=== PATIENT | female | born 1930 | race Caucasian/White ===

== ENCOUNTER → 2020-05-30 | Outpatient (CLI) | payer MEDICARE, OTHER ==
[~2020-05-30] MED LIST: APRESOLINE 25MG25 MG PO; APRESOLINE50 MG PO; ASPIRIN E.C. 8181 MG PO; B-12 SHOT; BETAPACE 80MG80 MG PO; BYSTOLIC5 MG PO; CALTRATE 600 +1 TAB PO; CATAPRES 0.1MG0.1 MG PO; CEPHALEXIN500 M1 PO; CLARITIN 1010 MG/TAB PO; COSOPT 2%-0.5%10 ML OS; COZAAR 50MG50 MG/TAB PO; ELIQUIS 2.5 PO; FLAX OIL1000 MG PO; GLUCOPHAGE500 MG/TAB PO; ICAPS TABLET1 EACH PO; LASIX 20MG TABL20 MG PO; LOTEMAX 5 ML 5 M5 ML OU; LOTENSIN40 MG PO; LUMIGAN 2.5 ML2.5 M1 OP; MULTI VITAMINS1 TAB PO; NATURAL IRON65 MG PO; NORVASC2.5 MG PO; PROAIR HFA0.09 MG/AC IH; PROTONIX 40MG T40 MG PO; RT ADVAIR 128 DISKUS IH; TRICOR 48MG48 MG PO; WELCHOL 625MG625 MG PO
== END ==
LOC: COL.RAD 08:29
DX: J18.1 Lobar pneumonia, unspecified organism (principal); I27.20 Pulmonary hypertension, unspecified; Z95.0 Presence of cardiac pacemaker; Z97.8 Presence of other specified devices
CPT/HCPCS: A9540; A9567

== ENCOUNTER 2020-08-30 12:32 | Emergency (ER) | payer MEDICARE, OTHER ==
[~2020-08-30] VITALS: Ht 147.3 cm; Wt 60.9 kg
[2020-08-30 12:33] VITALS: TEMP 97.8
[2020-08-30 12:50] LABS: BASO % 0.5 % (0.0-2.0); EOS # 0.2 (0.0-0.7); EOS % 2.7 % (0-4.0); GRAN # 3.3 (1.4-6.5); GRAN % 58.5 % (42.2-75.2); HEMATOCRIT 34.5 % (37.0-47.0); HEMOGLOBIN 10.6 g/dl (12.5-16.0); LYMPH # 1.5 (1.2-3.4); LYMPH % 27.4 % (20.0-51.0); MEAN CELL VOLUME 85 fl (80.0-100.0); MEAN CORPUSCULAR HEMOGLOBIN 26 pg (27.0-31.0); MEAN CORPUSCULAR HGB CONC 31 g/dl (33.0-37.0); MEAN PLATELET VOLUME 9.7 fl (7.4-10.4); MONO # 0.6 (0.1-0.6); MONO % 10.2 % (1.7-9.3); PLATELET COUNT 282 K/mm3 (130-400); RED BLOOD COUNT 4.06 M/mm3 (4.10-5.30); REDCELL DISTRIBUTION WIDTH-CV 20.3 % (11.5-14.5)
[2020-08-30 13:01] LABS: ALANINE AMINOTRANSFERASE 13 U/L (4-34); ALBUMIN 4.2 gm/dL (3.5-5.0); ALKALINE PHOSPHATASE 25 U/L (50-136); ANION GAP 4 mmol/L (7-16); AST,SGOT 35 U/L (15-37); BILIRUBIN,TOTAL 0.5 mg/dL (0.0-1.0); BLOOD UREA NITROGEN 33 mg/dL (7-17); C-REACTIVE PROTEIN < 0.5 mg/dL (0.0-0.9); CARBON DIOXIDE 22 mmol/L (22-30); CHLORIDE 114 mmol/L (98-107); GLUCOSE 81 mg/dL (74-106); POTASSIUM 5.6 mmol/L (3.4-5.0); SODIUM 140 mmol/L (137-145); TOTAL PROTEIN 7.5 gm/dL (6.4-8.2)
[2020-08-30 14:02] LABS: INR 1.6 (0.8-3.0); PROTHROMBIN TIME 17.5 SECONDS (9.7-12.8)
[2020-08-30] MEDS ORDERED: ELIQUIS 5MG PO (14:22)
[2020-08-30 14:46] VITALS: BP 141/53; PULSE 80
== END 2020-08-30 14:48 | disposition home or self-care (01) ==
LOC: COL.ER 12:32
PROVIDERS: Family Medicine
DX: G45.9 Transient cerebral ischemic attack, unspecified (principal); I10 Essential (primary) hypertension; E11.9 Type 2 diabetes mellitus without complications; E78.5 Hyperlipidemia, unspecified; I48.91 Unspecified atrial fibrillation; Z88.5 Allergy status to narcotic agent; Z88.8 Allergy status to other drugs, medicaments and biological substances; Z79.84 Long term (current) use of oral hypoglycemic drugs; Z79.01 Long term (current) use of anticoagulants; Z79.899 Other long term (current) drug therapy